=== PATIENT | male | born 1980 | race Caucasian/White ===

== ENCOUNTER 2022-06-30 13:33 | Emergency (ER) | payer BC, MEDICAID ==
[2022-06-30] MEDS ORDERED: Sodium Chloride 0.9% 10 ML Syringe FLUSH PRN (14:40)
[2022-06-30] MEDS: LORazepam 2 MG/ML SDV IVPUSH ONE (15:16)
[2022-06-30 15:23] LABS: BARBITURATE SCREEN,URINE NEGATIVE (NEGATIVE); BENZODIAZEPINES SCREEN,URINE NEGATIVE (NEGATIVE); TCA SCREEN,URINE NEGATIVE (NEGATIVE); THC SCREEN,URINE 50 NG/ML POSITIVE (NEGATIVE)
[2022-06-30 15:32] LABS: ANION GAP 14.9 mmol/L (5-15); CHLORIDE,CL 106 mmol/L (98-107); SODIUM,NA 143 mmol/L (136-145)
[2022-06-30 15:33] LABS: ESTIMATED GFR 116 mL/min (>=60)
[2022-06-30 15:34] LABS: ACETAMINOPHEN < 0.0 ug/mL (10.0-30.0)
== END 2022-06-30 18:59 ==
LOC: KA.ED 13:33
DX: R45.851 Suicidal ideations (principal); Z88.2 Allergy status to sulfonamides; Z20.822 Contact with and (suspected) exposure to COVID-19
CPT/HCPCS: 36415; 80053; 80143; 80305-QW; 80307; 85025; 96374; 99285-25; J2060; U0002

== ENCOUNTER 2022-07-09 15:42 | Emergency (ER) | payer MEDICAID ==
[2022-07-09 16:39] LABS: ANION GAP 10.5 mmol/L (5-15); CHLORIDE,CL 104 mmol/L (98-107); SODIUM,NA 142 mmol/L (136-145)
[2022-07-09 16:43] LABS: ACETAMINOPHEN < 0.0 ug/mL (10.0-30.0); ESTIMATED GFR 116 mL/min (>=60)
== END 2022-07-09 16:25 | disposition left against medical advice (07) ==
LOC: KA.ED 15:42
DX: F32.9 Major depressive disorder, single episode, unspecified (principal); F91.3 Oppositional defiant disorder; Z88.2 Allergy status to sulfonamides
CPT/HCPCS: 36415; 80053; 80143; 80307; 85025; 99284

== ENCOUNTER 2022-07-11 13:38 | Emergency (ER) | payer MEDICAID ==
[2022-07-11 16:13] LABS: CORONAVIRUS COVID-19 NAA NEGATIVE (NEGATIVE)
== END 2022-07-11 16:20 ==
LOC: KA.ED 13:38
DX: Z00.8 Encounter for other general examination (principal); F32.A Depression, unspecified; R45.850 Homicidal ideations; R45.851 Suicidal ideations; Z88.2 Allergy status to sulfonamides; Z20.822 Contact with and (suspected) exposure to COVID-19
CPT/HCPCS: 99285; U0002